=== PATIENT | female | born 1945 | race Caucasian/White ===

== ENCOUNTER 2019-01-10 05:53 | Inpatient (IN) ==
--- NOTE | 2018-12-20 11:06 | PAT Medication Instructions ---
Medication Instructions Date of Service December 20, 2018 Home Medications apixaban [Eliquis] 5 mg PO BID aspirin 81 mg PO QAM cholecalciferol (vitamin D3) [Vitamin D3] 1,000 unit PO QAM diltiazem HCl 240 mg PO QAM escitalopram oxalate [Lexapro] 20 mg PO QAM furosemide [Lasix] 20 mg PO BID hydroxychloroquine [Plaquenil] 200 mg PO BID lisinopril 20 mg PO QAM magnesium 200 mg PO QAM multivitamin 1 cap PO QAM ranitidine HCl [Zantac] 150 mg PO DAILY NEEDED simvastatin 40 mg PO PM ASK your surgeon for instructions aspirin 81 mg PO QAM - stop 5 days prior to surgery ASK your prescriber and surgeon apixaban [Eliquis] 5 mg PO BID - ask at cardiology appointment hydroxychloroquine [Plaquenil] 200 mg PO BID - ask bandoleer straightener stamper DO NOT take the morning of surgery cholecalciferol (vitamin D3) [Vitamin D3] 1,000 unit PO QAM furosemide [Lasix] 20 mg PO BID lisinopril 20 mg PO QAM magnesium 200 mg PO QAM multivitamin 1 cap PO QAM Take morning of surgery With a small sip of water, OTHERWISE NOTHING TO EAT OR DRINK AFTER MIDNIGHT: diltiazem HCl 240 mg PO QAM escitalopram oxalate [Lexapro] 20 mg PO QAM ranitidine HCl [Zantac] 150 mg PO DAILY NEEDED Take evening before surgery furosemide [Lasix] 20 mg PO BID simvastatin 40 mg PO PM Other Notes If you have any questions please call us at [phone] or [phone] or [phone] or [phone]
--- NOTE | 2018-12-20 11:20 | Anesthesiology Consultation ---
Date of Service December 20, 2018 Assessment & Plan (1) Encounter for pre-operative examination: Chart Review Chart Review: Acceptable Risk for Surgery and Patient seen in Pre Admission Testing Consults Requested cardiac (ALEXIS Fang (12/24)) Patient was seen by cardiology on 12/24 for new onset a.fib/a. flutter, as well as for a pre-operative clearance. Per note from that visit, patient is to have an Echocardiogram, Holter Monitor, and Follow up after her surgery. They do not feel testing needs to be done prior to surgery. Per note from this visit, "Agree with plan to proceed with surgery with no further testing." Also, "Can interrupt anticoagulation in the perioperative period." Teaching & Discussion Pre-Anesthesia Teaching/Discussion Notes: Instructed NPO after midnight before surgery, except medications with 15 cc of water. Medication instructions provided according to the PAT guidelines. History Surgery Operation Date: 01/10/19 08:50 Proposed Procedures p Right Total Knee Arthroplasty - Pedro Doan MD Height/Weight Height: 5 ft 7 in Weight: 117.4 kg Allergies Allergy/AdvReac Type Severity Reaction Status Date / Time Sulfa (Sulfonamide Allergy Intermediate "SULFA Verified 12/19/18 13:49 Antibiotics) DRUGS = RASH, HIVES, SWELLING" adhesive Allergy Unknown RED Verified 12/19/18 13:49 BLISTERS Iodinated Contrast- Oral and Allergy Unknown MENTAL Verified 12/19/18 13:49 IV Dye STATUS CHANGE - ? DELLUSIONS nickel Allergy Unknown RASH Verified 12/19/18 13:49 Penicillins Allergy Unknown RASH Verified 12/19/18 13:49 Medications Home Medications Medication Instructions Recorded Confirmed Last Taken apixaban [Eliquis] 5 mg PO BID 12/19/18 12/19/18 Unknown aspirin 81 mg PO QAM 12/19/18 12/19/18 Unknown cholecalciferol (vitamin D3) 1,000 unit PO QAM 12/19/18 12/19/18 Unknown [Vitamin D3] diltiazem HCl 240 mg PO QAM 12/19/18 12/19/18 Unknown escitalopram oxalate [Lexapro] 20 mg PO QAM 12/19/18 12/19/18 Unknown furosemide [Lasix] 20 mg PO BID 12/19/18 12/19/18 Unknown hydroxychloroquine [Plaquenil] 200 mg PO BID 12/19/18 12/19/18 Unknown lisinopril 20 mg PO QAM 12/19/18 12/19/18 Unknown magnesium 200 mg PO QAM 12/19/18 12/19/18 Unknown multivitamin 1 cap PO QAM 12/19/18 12/19/18 Unknown ranitidine HCl [Zantac] 150 mg PO DAILY PRN 12/19/18 12/19/18 Unknown simvastatin 40 mg PO PM 12/19/18 12/19/18 Unknown Past Medical History Medical History Cardiac arrest (Resolved) 09/23/2013 - [facility] [facility] [place] - MEDICAL TREATMENT -- FX RIBS AND PUNCTURE SPLEEN AND DID NOT NEED SURGERY -- [facility] FOLLOWS WITH MCKAYLA DELGADO AND DR GARVEY AND SWITCHING TO IN [place] AAA (abdominal aortic aneurysm) (Chronic) HTN (hypertension) (Chronic) HLD (hyperlipidemia) (Chronic) COPD (chronic obstructive pulmonary disease) (Chronic) GERD (gastroesophageal reflux disease) (Chronic) Rheumatoid arthritis (Chronic) Thoracic aortic aneurysm (Resolved) Atrial flutter 12/17/18 - WAS IN TO SEE MIKE GURROLA FOR PREOP AND HAD EKG WHICH SHOWED ATRIAL FLUTTER. HE STARTED HER ON ELIQUIS 5MG BID AND IS TO SEE [facility] TECHNICIAN IN [place] FOR EVALUATION ON 12/24. Diabetes mellitus, type 2 NO MEDS AT PRESENT Vertigo Exercise / Class Metabolic Activity III < 4 Walking/Shop/Light housework (Limited due to knee pain. Able to climb FOS. Does get SOB with activity (sees cardiology for new dx of a. flutter 12/24). Denies CP. ) Past Surgical History Surgical History S/P BRYSON-BSO (Chronic) H/O knee surgery (Chronic) RIGHT Hx of total knee arthroplasty (Chronic) LEFT S/P cholecystectomy (Chronic) S/P (Chronic) H/O cataract removal with insertion of prosthetic lens History of carpal tunnel release of both wrists Hx of colonoscopy Hx of thoracic aortic aneurysm repair 2014 - DR HUGHES 08/03/15: MAC #3, ETT #7.0, HiLo Oral, Grade 1 View Past Anesthesia History No Hx of Anesthesia Complications and No Family Hx of Anesthesia Complications History of PONV No Hx of PONV and No Hx of Motion Sickness Social History Smoking Status: Former smoker Smoking cigarettes per day: Smoked 1.5ppd x 51 years Do You Dip or Chew Tobacco: No Smoking End Date: QUIT 2013 Hx Alcohol Use: No Hx Substance Use: No substance use type: does not use Review of Systems Patient denies chest pain, shortness of breath, cough, wheezing, palpitations. +Joint Pain (Knee) +DURAN (New diagnosis a. fib/flutter) +Acid reflux (Rare, resolves quickly with Zantac) Physical Exam Vital Signs BP: 116/74 P: 82 R: 16 T: 99.0 SPO2: 96% on RA Constitutional + morbidly obese ENMT Mouth: + dentures (upper and lower) and + edentulous Thyromental Distance: < 3.5 Finger Breadths (3) Mallampati Class: II Neck normal visual inspection, trachea midline and + thick neck; neck extension not limited Respiratory normal respiratory effort Auscultation: lungs clear to auscultation bilaterally Cardiovascular Rate/Rhythm: + abnormal rate and + abnormal rhythm Heart Sounds: no murmur Vessels: no carotid bruit Irregularly Irregular rate and rhythm Neurologic moves all extremities Psychiatric Orientation: alert and oriented x 3 Testing Laboratory Results 12/20/18 11:32 12/20/18 11:32 PT 10.8 Seconds (9.0-12.0) 12/20/18 11:35 INR 1.1 (0.9-1.1) 12/20/18 11:35 APTT 28.3 Seconds (21.0-31.0) 12/20/18 11:35 Hemoglobin A1c 6.6 % (4.5-5.6) H 12/20/18 11:32 Blood Type A Positive 12/20/18 11:32 Antibody Screen NEGATIVE 12/20/18 11:32 BUN/Cr are consistent with baseline per records from [facility]. Electrocardiogram Date: 12/17/18 Cervical Spine Date: 12/20/18 FINDINGS: 3 lateral views of the cervical spine in neutral, flexion, and extension were submitted. The cervical spine is visualized from C1 through T1. No fractures within the cervical spine. Moderate facet degenerative changes throughout the cervical spine. Prevertebral soft tissues and the C1-C2 interval are intact. Questionable thickening of the prevertebral soft tissues is likely positional. Disc spaces are relatively preserved. Alignment remains intact throughout flexion and extension. IMPRESSION: No fracture or subluxation within the cervical spine. Alignment remains intact throughout flexion and extension. Other Testing Chest CT 04/22/18 FINDINGS: No change in the stent repair of the descending thoracic aortic aneurysm. Overall dimensions as well as stent positions are unchanged. There are no new or interval findings. Lungs are considered clear. Scattered foci of chronic atelectatic and/or fibrotic change are stable. No significant mediastinal or hilar adenopathy at the current time. No focal infiltrates. IMPRESSION: 1. Endograft stent repair of the descending thoracic aorta unchanged from the prior study. 2. Stable emphysematous change. 3. No focal infiltrative process. 4. Descending thoracic aortic stent is unchanged in location
--- NOTE | 2018-12-20 12:06 | XRay Report ---
XR cervical spine 2 or 3V CLINICAL HISTORY: Preop. Rheumatoid arthritis. COMPARISON STUDY: None. FINDINGS: 3 lateral views of the cervical spine in neutral, flexion, and extension were submitted. Th e cervical spine is visualized from C1 through T1. No fractures within the cervical spine. Moderate f acet degenerative changes throughout the cervical spine. Prevertebral soft tissues and the C1-C2 inte rval are intact. Questionable thickening of the prevertebral soft tissues is likely positional. Disc spaces are relatively preserved. Alignment remains intact throughout flexion and extension. IMPRESSION: No fracture or subluxation within the cervical spine. Alignment remains intact throughou t flexion and extension. Electronically signed by: Malachi Sutton M.D. 12/20/2018 12:05 PM
[2018-12-20 14:01] LABS: Basophils # (auto) 0.05 K/uL (0-0.2); Basophils % (auto) 0.5 %; Eosinophils # (auto) 0.22 K/uL (0-0.5); Eosinophils % (auto) 2.2 %; Hematocrit (blood only) 37.2 % (37-47); Hemoglobin 11.7 g/dL (12.0-16.0); Immature Granulocytes # (auto) 0.03 K/uL (0.00-0.02); Immature Granulocytes % (auto) 0.3 %; Lymphocytes # (auto) 1.54 K/uL (1.2-3.4); Lymphocytes % (auto) 15.3 %; Mean Corpuscular Hemoglobin 29.7 pg (25-34); Mean Corpuscular Hgb Conc 31.5 g/dL (32-36); Mean Corpuscular Volume 94.4 fL (80-100); Mean Platelet Volume 9.9 fL (7.4-10.4); Monocytes # (auto) 0.61 K/uL (0.11-0.59); Monocytes % (auto) 6.1 %; Neutrophils # (auto) 7.62 K/uL (1.4-6.5); Neutrophils % (auto) 75.6 %; Platelet Count 258 K/uL (130-400); RDW Coefficient of Variation 12.7 % (11.5-14.5); RDW Standard Deviation 43.8 fL (36.4-46.3); Red Blood Count 3.94 M/uL (4.2-5.4); White Blood Count 10.07 K/uL (4.8-10.8)
[2018-12-20 14:14] LABS: BUN Creatinine Ratio 23.1 (10-20); C Reactive Protein 0.91 mg/dl (0-0.29); Calcium 9.1 mg/dl (8.5-10.1); Creatinine Clr Calc Pharmacy 45.2 ml/min; Est GFR (African American) 40.2; Est GFR (Non-African American) 34.7; Potassium 4.9 mmol/L (3.5-5.1)
[2018-12-20 14:23] LABS: Estimated Average Glucose 143 mg/dl; Hemoglobin A1C 6.6 % (4.5-5.6)
[2018-12-20 14:25] LABS: INR 1.1 (0.9-1.1); Partial Thromboplastin Time 28.3 Seconds (21.0-31.0); Prothrombin Time 10.8 Seconds (9.0-12.0)
--- NOTE | 2019-01-04 01:15 | History and Physical Report ---
DATE OF ADMISSION: 01/03/2019 CHIEF COMPLAINT: Persistent right knee pain and discomfort. HISTORY OF PRESENT ILLNESS: This patient is a 73-year-old female who presents for surgical treatment of her right knee. She had a long history of knee problems and underwent a left knee replacement 5 years ago. She has done pretty well with this, but still has some muscle aches and pains, but in general pretty happy. She continues to be bothered by progressive increasing pain and discomfort in her right knee. She describes global pain. She has a limited walking tolerance. We treated with injections over the years, which have become less successful. The more she walks, the more it hurts. Walking tolerance is a couple of blocks. She has difficulty going up and down stairs. She has nighttime discomfort. She would like to have her right knee fixed. PAST MEDICAL HISTORY: 1. Coronary artery disease, status post myocardial infarction in 2013 without current symptoms. 2. Hypertension. 3. Elevated cholesterol. 4. Chronic obstructive pulmonary disease. 5. Diabetes with an A1c of 6.6. 6. Obesity with BMI of 41. 7. Gastroesophageal reflux disease. PAST SURGICAL HISTORY: 1. Left knee replacement done on 03/10/2014. 2. Cataract surgery. 3. Hysterectomy. 4. Carpal tunnel release. 5. Cholecystectomy. ALLERGIES: PENICILLIN WHICH CAUSES A RASH. ALSO DESCRIBES ALLERGY TO NICKEL AND SULFA. CURRENT MEDICINES: Include, 1. Combivent inhaler. 2. Albuterol inhaler. 3. Plaquenil twice a day for rheumatoid arthritis. 4. Lisinopril once a day. 5. Diltiazem. 6. Zantac. 7. Unspecified pill. 8. Baby aspirin. 9. Unspecified med. SOCIAL HISTORY: This patient is a 73-year-old female. She is from [place]. Does not smoke. No significant alcohol intake. FAMILY HISTORY: Noncontributory. REVIEW OF SYSTEMS: Significant for diabetes. Hemoglobin A1c is 6.6. She does have a history of cardiac disease, but no current symptoms. She is followed by Dr. Huynh. She also reports some nickel allergy. We used a Caldwell and Nephew knee with her last time as a result. PHYSICAL EXAMINATION: GENERAL: Reveals a pleasant, middle-aged female, looks to be in reasonably good health. HEENT: Benign. NECK: Supple. No lymphadenopathy. LUNGS: Clear to auscultation. HEART: Regular rate and rhythm. ABDOMEN: Soft, nontender and nondistended. EXTREMITIES: Grossly neurovascularly intact except as follows. Examination of both knees reveals the patient walks with a bit of a waddling gait. Examination of the right knee reveals varus alignment. She has got bony hypertrophy medially. She is tender over the medial joint line. Small knee effusion. Range of motion is 5-120. No instability. Examination of the left knee reveals a well-healed incision. She has got some mild diffuse tenderness to palpation. She is tender around the pes tendons. There is no detectable knee effusion. Range of motion 0-120. Good straight leg raise. X-RAYS: X-rays of the right knee reviewed. She has advanced right knee DJD. She has complete loss of medial joint space. She has got tricompartment disease with osteophytes in all 3 compartments. Fairly large posterior osteophytes. The left knee replacement looks to be in good position. No signs of problems. ASSESSMENT: This patient is a 73-year-old white female diabetic with underlying rheumatoid disease 5 years out from left knee replacement with advanced right knee degenerative joint disease. She elected to proceed with right knee replacement. PLAN: We will take her to the operating room and do a right total knee replacement. Due to her nickel allergy, we will use a Caldwell and Nephew total knee replacement. Her sed rate and C-reactive protein are slightly elevated, likely related to her rheumatoid disease. The risks and benefits of right total knee replacement were explained to the patient including but not limited to deep venous thrombosis, pulmonary embolism, , infection, neurological injury, vascular injury, bleeding problem, pain, limited range of motion, stiffness, failure to relieve symptoms, incomplete relief of symptoms, need for further surgery in future, fracture, leg length inequality, nerve palsy, etc. The patient understands and desires to proceed. Informed consent was obtained. We did talk about holding her lisinopril the morning of surgery. She is planning to be discharged home using [facility]. DONOVAN
[2019-01-10] MEDS ORDERED: GABAPENTIN 300 MG CAP PO SCH (06:00)
[2019-01-10] MEDS ORDERED: LR 500ML BOLUS, THEN 15ML/HR IV SCH (06:00)
[2019-01-10] MEDS ORDERED: BUPIVACAINE LIPOSOME/PF 266 MG, BUPIVACAINE/EPINEPHRINE 50 ML, SODIUM CHLORIDE 0.9% 30 ... INFIL SCH (06:00)
[2019-01-10] MEDS ORDERED: FAMOTIDINE 20 MG TAB PO SCH (06:00)
[2019-01-10] MEDS ORDERED: LR 60ML/HR IV SCH (06:00)
[2019-01-10] MEDS ORDERED: TRANEXAMIC ACID 1,000 MG **IV Pre-op IV SCH (06:00)
[2019-01-10] MEDS ORDERED: ACETAMINOPHEN 500 MG TAB PO SCH (06:00)
[2019-01-10] MEDS ORDERED: CEFAZOLIN 2000MG 2,000 MG/15 ML SYR IV SCH (06:00)
[2019-01-10] MEDS ORDERED: TRANEXAMIC ACID 1,000 MG **IV Intra-op IV SCH (06:30)
--- NOTE | 2019-01-10 06:53 | History & Physical Bridge Note ---
Date of Service January 10, 2019 History & Physical Bridge Note I have examined the patient, reviewed the History & Physical and in the interval since the performance of the History & Physical I have noted the following changes of clinical significance: no changes noted
[2019-01-10] MEDS ORDERED: ROPIVACAINE 0.5% 5 MG/ML 30 ML VIAL ONE (07:12)
[2019-01-10] MEDS ORDERED: BUPIVACAINE 0.5 % 5 MG/1 ML PF 10ML VIAL ONE (07:13)
[2019-01-10] MEDS ORDERED: EPINEPHrine INJ 1 MG/ML AMP ONE ×2 (07:13→08:53)
[2019-01-10] MEDS ORDERED: MIDAZOLAM HCL 1 MG/ML 2ML VIAL ONE (07:27)
[2019-01-10] MEDS ORDERED: fentaNYL citrate 100 MCG/2 ML VIAL ONE (07:27)
[2019-01-10] MEDS ORDERED: SODIUM CHLORIDE 0.9% PF 50 ML VIAL ONE (08:52)
[2019-01-10] MEDS ORDERED: BACITRACIN INJ 50,000 UNIT VIAL ONE (08:52)
[2019-01-10] MEDS ORDERED: BUPIVACAINE LIPOSOME 1.3% 266 MG/20 ML VIAL ONE (08:52)
[2019-01-10] MEDS ORDERED: BUPIVACAINE 0.25% 30 ML VIAL ONE (08:52)
[2019-01-10] MEDS ORDERED: PHENYLEPHRINE 100MCG/ML 5ML SYR ONE (09:25)
[2019-01-10] MEDS ORDERED: ePHEDrine sulfate 50 MG/ML SYR ONE (09:30)
--- NOTE | 2019-01-10 10:57 | Post Operative Brief Note ---
PG Immediate Post Op with CF Date of Surgery January 10, 2019 Pre & Post Diagnosis Operation Date: 01/10/19 08:40 Pre-Op Diagnosis: Right Knee Degenerative Joint Disease Post-Op Diagnosis: Right Knee Degenerative Joint Disease Procedure Operation Date: 01/10/19 08:40 Actual Procedures p Right Total Knee Arthroplasty(Right) - Pedro Doan MD Surgeon Pedro Doan MD Tool Shaper Setup Operator Liliya, PAC Estimated Blood Loss 50 Findings Consistent with Post-Op Diagnosis Fluids 1000 cc Specimens Specimen Description: Permanent Solution: A.) Right Knee Bone and Tissue Drains Bowden Catheter (16 amharic 10ml balloon) Anesthesia Type Spinal MAC Complications none Disposition Accompanied Patient To Recovery: No Disposition: Recovery Room
[2019-01-10] MEDS ORDERED: ATROPINE SULFATE 0.1 MG/ML 10ML SYR IV PRN (11:27)
[2019-01-10] MEDS ORDERED: ePHEDrine sulfate 50 MG/ML AMP IV PRN (11:27)
--- NOTE | 2019-01-10 11:33 | XRay Report ---
RIGHT KNEE 2 VIEWS History: Right total knee arthroplasty. Degenerative arthritis. Postop. FINDINGS: The patient is status post a right total knee arthroplasty. The hardware is intact. No frac ture or dislocation. Skin stone are in place. IMPRESSION: Right total knee arthroplasty. No evidence for hardware complication. Electronically signed by: Malachi Sutton M.D. 01/10/2019 11:32 AM
--- NOTE | 2019-01-10 11:50 | Anesthesiology Progress Note ---
Date of Service January 10, 2019 Anesthesia Post Procedure Vital Signs Vital Signs: Temp Pulse Pulse Resp BP Pulse Ox 01/10/19 11:40 65 14 107/56 L 96 01/10/19 11:30 58 L 15 114/50 L 97 01/10/19 11:20 36.5 C 64 14 116/55 L 92 01/10/19 11:10 61 15 106/55 L 100 01/10/19 11:04 36.1 C L 77 15 117/70 99 01/10/19 06:30 36.9 C 92 H 20 145/90 H 94 Transfer of Care Handoff Completed per policy Notes Mental Status: alert / awake / arousable Patient Amnestic to Procedure: Yes Nausea / Vomiting: adequately controlled Pain: adequately controlled Airway Patency, RR, SpO2: stable & adequate BP & HR: stable & adequate Hydration State: stable & adequate Neuraxial Anesthesia: was administered and sensory block is resolving Anesthetic Complications: no major complications apparent
[2019-01-10] MEDS ORDERED: GLUCOSE 40% GEL 15 GM TUBE PO PRN (12:42)
[2019-01-10] MEDS ORDERED: NO NSAIDS SCH (12:42)
[2019-01-10] MEDS ORDERED: MAGNESIUM HYDROXIDE SUSP 30 ML UDC PO PRN (12:42)
[2019-01-10] MEDS ORDERED: NALOXONE HCL 0.4 MG/1 ML VIAL/CARP IV PRN (12:42)
[2019-01-10] MEDS ORDERED: ALUMINUM/MAGNESIUM SUSP 30 ML UDC PO PRN (12:42)
[2019-01-10] MEDS ORDERED: GLUCOSE 10 TABS/TUBE PO PRN (12:42)
[2019-01-10] MEDS ORDERED: METOCLOPRAMIDE HCL INJ 5 MG/ML 2 ML VIAL IV PRN (12:42)
[2019-01-10] MEDS ORDERED: PHARMACY GLYCEMIC MGMT CONSULT STA (12:42)
[2019-01-10] MEDS ORDERED: GLUCAGON FOR INJ 1 MG VIAL SQ PRN (12:42)
[2019-01-10] MEDS ORDERED: ONDANSETRON INJ 2 MG/ML 2 ML VIAL IV PRN (12:42)
[2019-01-10] MEDS ORDERED: CARBOHYDRATES FOR HYPOGLYCEMIA PO PRN (12:42)
[2019-01-10] MEDS ORDERED: BISACODYL 10 MG SUPP PR PRN (12:42)
[2019-01-10] MEDS ORDERED: DEXTROSE 50% 50 ML SYRINGE IV PRN (12:42)
[2019-01-10] MEDS ORDERED: PHARMACY GLYCEMIC MGMT CONSULT SCH (13:00)
[2019-01-10] MEDS: OXYCODONE HCL IR 5 MG TAB (IMMEDIATE RELEASE) PO PRN ×2 (13:06→18:45)
[2019-01-10] MEDS: INSULIN ASPART 100 UNITS/ML 3 ML PEN SC SCH ×3 (13:48→22:18)
[2019-01-10] MEDS: IPRATROPIUM BROMIDE/ALBUTEROL respimat INH INH SCH ×3 (13:50→21:27)
[2019-01-10] MEDS: ACETAMINOPHEN 500 MG TAB PO SCH ×2 (13:51→21:30)
[2019-01-10] MEDS: SODIUM CHLORIDE 0.9% 1000ML 1,000 ML IV SCH ×2 (13:51→18:50)
--- NOTE | 2019-01-10 14:09 | Pharmacy Report ---
Glycemic Control Consultation - Date of Service January 10, 2019 - Scope Scope: Glycemic Pharmacist consulted by Dr Pedro Doan on 01/10/19 for glycemic control and to write orders per [facility] inpatient glycemic control protocol - Objective Weight: 115.865 kg Accuchecks BSG (last 24hrs): 01/10/19 01/10/19 01/10/19 06:13 11:12 12:18 POC Glucose 119 H 121 H 109 H HbA1c: Hemoglobin A1c 6.6 % (4.5-5.6) H 12/20/18 11:32 - Recent Pertinent Medications Outpatient Anti-diabetic Regimen: * no medications * A1c = 6.6 % 12/20/18 Risk Factors for Insulin Resistance: * Recent Surgery: s/p TKA * Diet: Type 2 DM - Assessment & Plan Assessment & Plan: ASSESSMENT: * 73 year old female, s/p TKA, type 2 diabetic controlled by diet/lifestyle at home, A1c 6.6%. * Blood sugars at goal now while fasting, will just use bolus insulin at this time, likely won't need basal insulin, no steroids received. * ADA & AACE recommend a goal blood sugar range 140-180 mg/dl for the majority of critically ill & non-critically ill patients. However, more stringent targets may be selected in individual cases. Will utilize more stringent goal of 110-140mg/dl based on patient age & comorbidities. Additionally, tighter glycemic control is warranted to facilitate wound/infection healing. PLAN FOR INPATIENT GLYCEMIC CONTROL: * Bolus insulin * NovoLog per scale ACHS or Q6hrs while NPO * Goal Range: Low 110 mg/dL - High 140 mg/dL * Correction Factor: 30 mg/dL/unit * Nutritional / Prandial insulin per carb ratio of 1 unit per 10 grams CHO consumed * Please note that the plan above was derived based on current level of insulin resistance and hospital stress. These recommendations are appropriate for inpatient admission only. Plan of care upon discharge will need to be reassessed to avoid potential outpatient hypo/hyperglycemia. Thank you.
--- NOTE | 2019-01-10 16:05 | Progress Note ---
DATE: 01/10/2019 SUBJECTIVE: A 73-year-old white female postop from a right knee replacement. She is doing okay. Had some pain earlier, got some pain medicine, doing much better now. She is comfortable. No chest pain or shortness of breath. Not feeling dizzy or lightheaded. OBJECTIVE: VITAL SIGNS: Temperature 36.4. Vital signs stable. GENERAL: Physical exam shows a pleasant elderly female. She is lying in bed and talking to her , watching TV, looks reasonably comfortable. LUNGS: Clear to auscultation. HEART: Has irregularly irregular rhythm. ABDOMEN: Soft, nontender, nondistended. EXTREMITIES: Grossly neurovascularly intact except as follows. Examination of the right lower extremity reveals the leg to be well aligned. Dressing is clean, dry and intact. She can dorsiflex and plantarflex her foot appropriately. She is neurologically intact. X-RAYS: X-ray of the right knee from recovery room reviewed. It shows right cemented posterior stabilized total knee arthroplasty. Components looked to be in good position. No signs of problems. ASSESSMENT: A 73-year-old white female postop from a right knee replacement, doing well. Her pain is controlled. She is neurologically intact. PLAN: 1. DVT prophylaxis including thigh-high TEDs, SCDs. We will start her back on Eliquis tomorrow. We will start at a prophylactic dose initially and then increase to therapeutic dose probably in 2-3 days. 2. PT/OT. Weight bear as tolerated. Right total knee protocol. 3. Pain control, doing well with current pain regimen. 4. IV antibiotics x24 hours. 5. Disposition: Plan to discharge to home with some home health once adequately recovered.
[2019-01-10] MEDS: FERROUS GLUCONATE 324 MG TAB PO SCH (17:23)
[2019-01-10] MEDS: FUROSEMIDE 20 MG TAB PO SCH (17:23)
[2019-01-10] MEDS: CEFAZOLIN 2000MG 2,000 MG/15 ML SYR IV SCH (17:23)
[2019-01-10] MEDS: ASCORBIC ACID 500 MG TAB PO SCH (17:23)
--- NOTE | 2019-01-10 20:45 | Operative Report ---
DATE OF OPERATION: 01/10/2019 SURGEON: Pedro Doan MD. ADJUSTER ELECTRICAL CONTACTS: IZABELA Carrion. PREOPERATIVE DIAGNOSIS: Right knee degenerative joint disease. POSTOPERATIVE DIAGNOSIS: Right knee degenerative joint disease. PROCEDURE PERFORMED: Right cemented posterior stabilized total knee arthroplasty. COMPLICATIONS: None. ESTIMATED BLOOD LOSS: 50 mL. FLUID REPLACEMENT: 1000 mL of crystalloid fluid replacement. ANESTHESIA: Spinal with adductor canal block. DRAINS: None. SPECIMENS: Right knee sent for pathology. OPERATIVE INDICATIONS: The patient is a 73-year-old female who has had a long history of knee problems. She has been through extensive conservative treatment over the years. She had her left knee replaced about 4-1/2 years ago. She became more debilitated by her right knee pain. She elected to proceed with right total knee arthroplasty. OPERATIVE FINDINGS: Operative findings revealed advanced right knee DJD. She had grade 4 [id number] disease in all 3 compartments, most severe on the medial side. She had a varus deformity to her knee, a 10 degree flexion contracture, and osteophytes, particularly on the medial side of the knee and the posterior medial side of the knee. The patient apparently has a NICKEL ALLERGY, so we used the Caldwell and Nephew zirconium knee arthroplasty. OPERATIVE IMPLANTS: 1. Operative implants consistent with Caldwell [employer] Nephew Journey zirconium size 4 posterior stabilized femoral component. 2. Caldwell and Nephew size 3 tibial tray. 3. A 10 mm posterior stabilized polyethylene insert. 4. A ____ x 9 all-poly patella. OPERATIVE PROCEDURE: The patient was taken to the operating room, identified and placed on the operating table in supine position. All contact areas were appropriately padded. IV antibiotics provided by anesthesia team. Spinal anesthetic and adductor canal block had been provided in the holding area. Bowden catheter was placed in sterile fashion. Right thigh tourniquet was then placed and the right lower extremity was then prepped and draped in usual sterile fashion. The right leg was elevated and exsanguinated with an Esmarch and tourniquet was placed at 300 mmHg. An anterior approach to the right knee was then performed through a longitudinal incision centered over the patella. Sharp dissection was carried through the subcutaneous tissues down to the level of the extensor mechanism. A medial parapatellar arthrotomy incision was made. Some subperiosteal dissection was carried out medially. The fat pad was resected from beneath the patellar tendon. The lateral patellofemoral ligament was released. The patella was everted and knee was flexed. The osteophytes were taken off the distal femur. The ACL and PCL were then released from distal femur. The tibia subluxated anteriorly. The external tibial alignment jig was then placed in the anterior face of the tibia and adjusted 8 mm medially. Proximal tibial cut was made to remove about 2 mm of bone from the most deficient aspect of the medial tibial plateau. Some osteophytes were taken off medial and posteromedially. Tibia was sized to a size 3. Attention was then drawn to the femur. The distal femur was entered with a sharp drill. Intramedullary canal was suctioned. A right 5-degree valgus cutting guide was placed. Distal femoral cutting block was pinned in place. Distal femoral cut was made to take an additional 2 mm of bone off distal femur. The femur was then sized to a size 4. We did downsize this slightly. The AP cutting block was then pinned in place and adjusted to 6 degrees of external rotation. The anterior cord, anterior chamfer, posterior cut, posterior chamfer, and then anterior cut were made. The cutting block was removed. The bone fragments were removed. The knee was flexed. The remnants of the medial and lateral menisci were excised. The osteophytes were taken off the posterior aspect of the femur. The trial femoral component was then placed. The distal femur was prepared for the box and then the trochlea was placed. The tibial tray was then pinned in maximum external rotation and the drill and stem punch were used to create defect in proximal tibia for the tibial tray. We then trialed the knee and the 10 mm insert fit most appropriately. Attention was then drawn to the patella. The patella was cleaned of all soft tissues. Patella thickness measured about 22 mm in thickness, it was cut down to 14. It was sized to a size 35 patella. Lug holes were drilled for 35 patella. Lateral osteophytes were removed. Patella button was placed. Knee was taken through range of motion, patella tracked nicely with no thumbs test. Attention was then drawn toward placement of permanent components. All trial components were removed. A bone plug was placed in the distal femur to limit blood loss. A double batch of Palacos G cement was mixed. A Caldwell and Nephew size 4 posterior stabilized femoral component, size 3 tibial tray, 10 mm posterior stabilized polyethylene insert, and a 35 x 9 all-poly patella then cemented in place. Knee was brought into full extension until cement hardened. Final cement check was then performed. Pericapsular tissues were injected with a total of 100 mL of combination of 20 mL of Exparel, 30 mL of normal saline, 50 mL of 0.25% Marcaine with epinephrine. The tourniquet was then let down for a tourniquet time of 57 minutes. Hemostasis was assured with the use of electrocautery. The wound was once again irrigated. The extensor mechanism was then closed with a combination of #1 PDS suture and #1 Vicryl suture in [id number] fashion. Extensor mechanism was checked and found to be intact. The subcutaneous tissue was then closed with #2 Dexon suture in a buried interrupted fashion. Skin was closed with skin stone. Leg was then cleaned, dried and a sterile dressing of Xeroform, 4 x 4, sterile cast padding and Jayson bandage were applied. The patient was then transferred to the recovery room in stable condition. The patient tolerated the procedure well with no complications. All needle and sponge counts were correct at the end of the operation. I attest to the content of the Intraoperative Record and any orders documented therein. Any exception s are noted below.
[2019-01-10] MEDS: TAPENTADOL HCL ER 50 MG TABCR PO SCH (21:27)
[2019-01-10] MEDS: BUDESONIDE/FORMOTEROL FUMARATE 160/4.5 60 PUFFS/INHALER INH SCH (21:27)
[2019-01-10] MEDS: SIMVASTATIN 40 MG TAB PO SCH (21:30)
[2019-01-10] MEDS: DOCUSATE SODIUM 100 MG CAP PO SCH (21:30)
[2019-01-10] MEDS: HYDROXYCHLOROQUINE SULFATE 200 MG TAB PO SCH (21:30)
[2019-01-10] MEDS: SENNA 8.6 MG TAB PO SCH (21:30)
[2019-01-10] MEDS: HYDROmorphone INJ 0.5 MG/0.5 ML SYR IV PRN (22:23)
[2019-01-11] MEDS: CEFAZOLIN 2000MG 2,000 MG/15 ML SYR IV SCH (00:24)
[2019-01-11] MEDS: OXYCODONE HCL IR 5 MG TAB (IMMEDIATE RELEASE) PO PRN ×2 (05:40→19:36)
[2019-01-11] MEDS: ACETAMINOPHEN 500 MG TAB PO SCH ×3 (05:40→21:18)
[2019-01-11 06:22] LABS: Hematocrit (blood only) 30.2 % (37-47); Hemoglobin 9.4 g/dL (12.0-16.0); Mean Corpuscular Hemoglobin 29.4 pg (25-34); Mean Corpuscular Hgb Conc 31.1 g/dL (32-36); Mean Corpuscular Volume 94.4 fL (80-100); Mean Platelet Volume 9.7 fL (7.4-10.4); Platelet Count 222 K/uL (130-400); RDW Coefficient of Variation 12.8 % (11.5-14.5); White Blood Count 11.15 K/uL (4.8-10.8)
[2019-01-11 07:04] LABS: BUN Creatinine Ratio 20.8 (10-20); Calcium 8.1 mg/dl (8.5-10.1); Creatinine Clr Calc Pharmacy 42.3 ml/min; Est GFR (African American) 37.5; Est GFR (Non-African American) 32.3; Potassium 4.8 mmol/L (3.5-5.1)
[2019-01-11] MEDS: HYDROmorphone INJ 0.5 MG/0.5 ML SYR IV PRN (07:13)
--- NOTE | 2019-01-11 08:35 | Progress Note ---
DATE: 01/11/2019 SUBJECTIVE: A 73-year-old white female postop day 1 from right knee replaced. She is doing okay. Pretty painful night and still hurting quite a bit this morning. No chest pain or shortness of breath. Denies any dizziness or lightheaded. OBJECTIVE: VITAL SIGNS: Temperature 36.6. Vital signs stable. GENERAL: Physical examination shows a pleasant elderly female. She is lying in bed, doing heel prop. She looks reasonably comfortable. EXTREMITIES: Examination of the right leg reveals the leg to be well aligned. Dressing has been reinforced. She can dorsiflex and plantarflex her foot appropriately. She cannot quite do a straight leg raise. LABORATORY DATA: Hemoglobin is 9.4. Hematocrit 30.2. Electrolytes are stable. She has got a chronic underlying renal disease. ASSESSMENT: A 73-year-old female with multiple medical comorbidities including diabetes, atrial fibrillation, and chronic renal insufficiency, postop day 1 from right knee replacement. She is doing okay. Unfortunately, her pain med limitations restrict NSAID use due to her anticoagulation as well as her renal function. PLAN: 1. DVT prophylaxis including thigh-high TEDs, SCDs, and we will start her back on a prophylactic Eliquis dose today. 2. PT/OT. Weight bear as tolerated. Right total knee protocol. 3. Pain control, doing okay with current pain regimen. We cannot use NSAIDs and we will have to stick to narcotics. 4. Disposition: She is hoping to be discharged to home with some home health once medically stable and recovered.
[2019-01-11] MEDS: ESCITALOPRAM OXALATE 20 MG TAB PO SCH (08:50)
[2019-01-11] MEDS: FERROUS GLUCONATE 324 MG TAB PO SCH ×2 (08:50→16:36)
[2019-01-11] MEDS: CHOLECALCIFEROL 1,000 UNITS TAB PO SCH (08:51)
[2019-01-11] MEDS: LISINOPRIL 20 MG TAB PO SCH (08:51)
[2019-01-11] MEDS: DOCUSATE SODIUM 100 MG CAP PO SCH ×2 (08:51→21:14)
[2019-01-11] MEDS: ASPIRIN 81 MG ECTAB PO SCH (08:51)
[2019-01-11] MEDS: HYDROXYCHLOROQUINE SULFATE 200 MG TAB PO SCH ×2 (08:51→21:14)
[2019-01-11] MEDS: IPRATROPIUM BROMIDE/ALBUTEROL respimat INH INH SCH ×4 (08:51→21:13)
[2019-01-11] MEDS: FUROSEMIDE 20 MG TAB PO SCH ×2 (08:51→16:36)
[2019-01-11] MEDS: dilTIAZem HCL 240 MG CAPCR PO SCH (08:51)
[2019-01-11] MEDS: ASCORBIC ACID 500 MG TAB PO SCH ×2 (08:51→16:37)
[2019-01-11] MEDS: MULTIVITAMIN TAB PO SCH (08:52)
[2019-01-11] MEDS: BUDESONIDE/FORMOTEROL FUMARATE 160/4.5 60 PUFFS/INHALER INH SCH ×2 (08:52→21:13)
[2019-01-11] MEDS: TAPENTADOL HCL ER 50 MG TABCR PO SCH ×2 (08:53→21:14)
[2019-01-11] MEDS: INSULIN ASPART 100 UNITS/ML 3 ML PEN SC SCH ×4 (08:55→21:39)
[2019-01-11] MEDS ORDERED: NON-FORMULARY MEDICATION (Magnesium 200 MG) PO SCH (09:00)
[2019-01-11] MEDS ORDERED: NON-FORMULARY MEDICATION (Multivitamin 1 CAP) PO SCH (09:00)
[2019-01-11] MEDS: APIXABAN 2.5 MG TAB PO SCH ×2 (10:58→21:14)
--- NOTE | 2019-01-11 11:36 | Pharmacy Report ---
Pharmacy Glycemic Short Note 2 - Date of Service January 11, 2019 - Glycemic Short BSG Results (Last 24 hours): 01/10/19 01/10/19 01/10/19 12:18 17:10 21:43 Glucose POC Glucose 109 H 127 H 156 H 01/11/19 01/11/19 05:23 08:25 Glucose 156 H POC Glucose 145 H OUTPATIENT ANTIDIABETIC REGIMEN: * no medications * A1c = 6.6 % 12/20/18 ASSESSMENT: * 73 year old female, s/p POD#1 TKA, type 2 diabetic controlled by diet/lifestyle at home, A1c 6.6%. * All BSGs within goal range with current orders. No changes needed at this time. * Goal is to maintain BSGs <200 mg/dl (ideally <150 mg/dl) to prevent post op complications PLAN FOR INPATIENT GLYCEMIC CONTROL: * Basal insulin * Not needed * Bolus insulin * NovoLog per scale ACHS or Q6hrs while NPO * Goal Range: Low 110 mg/dL - High 140 mg/dL * Correction Factor: 30 mg/dL/unit * Nutritional / Prandial insulin per carb ratio of 1 unit per 10 grams CHO consumed PLAN FOR DISCHARGE: * May consider starting metformin for diagnosis of diabetes per A1c > 6.5% * HbA1c of 6.5% or greater indicates "diagnosis of diabetes" --> ADA jsoh mmendation is to "Treat Diabetes" * Metformin, if not contraindicated and if tolerated, is the preferred initial pharmacological agent for type 2 diabetes. Metformin has a long-standing evidence base for efficacy and safety, is inexpensive, and may reduce risk of cardiovascular events. * Metformin XR 500mg PO daily with evening meal. Continue to titrate metformin dosing upwards as recommended. Dosage increases should be made in increments of 500 mg weekly, up to 2,000 mg/day PO, given in divided doses. Doses above 2000 mg/day may be better tolerated if divided and given 3 times per day with meals. Max: 2,550 mg/day PO, in divided doses * B12 supplementation may be necessary with mcc metformin use * Support Patient Self-Management * Healthy Lifestyle (diet, exercise, and smoking cessation) * Disease self-management (SMBG) * Prevention of complications (BP, Lipid goals, Immunizations) * Consider outpatient Diabetes Self-Management Education & Support
[2019-01-11] MEDS: SIMVASTATIN 40 MG TAB PO SCH (21:13)
[2019-01-11] MEDS: SENNA 8.6 MG TAB PO SCH (21:15)
[2019-01-12] MEDS: OXYCODONE HCL IR 5 MG TAB (IMMEDIATE RELEASE) PO PRN ×2 (01:59→12:06)
[2019-01-12] MEDS: ACETAMINOPHEN 500 MG TAB PO SCH (05:44)
[2019-01-12 06:07] LABS: Basophils # (auto) 0.03 K/uL (0-0.2); Basophils % (auto) 0.2 %; Eosinophils # (auto) 0.05 K/uL (0-0.5); Eosinophils % (auto) 0.4 %; Hematocrit (blood only) 25.7 % (37-47); Hemoglobin 8.2 g/dL (12.0-16.0); Immature Granulocytes # (auto) 0.07 K/uL (0.00-0.02); Immature Granulocytes % (auto) 0.5 %; Lymphocytes % (auto) 8.3 %; Mean Corpuscular Hemoglobin 29.7 pg (25-34); Mean Corpuscular Hgb Conc 31.9 g/dL (32-36); Mean Corpuscular Volume 93.1 fL (80-100); Mean Platelet Volume 9.6 fL (7.4-10.4); Monocytes # (auto) 1.55 K/uL (0.11-0.59); Monocytes % (auto) 11.7 %; Neutrophils # (auto) 10.41 K/uL (1.4-6.5); Neutrophils % (auto) 78.9 %; Platelet Count 180 K/uL (130-400); RDW Coefficient of Variation 13.1 % (11.5-14.5); RDW Standard Deviation 44.2 fL (36.4-46.3); Red Blood Count 2.76 M/uL (4.2-5.4); White Blood Count 13.21 K/uL (4.8-10.8)
--- NOTE | 2019-01-12 08:09 | Progress Note ---
DATE: 01/12/2019 SUBJECTIVE: A 73-year-old white female postop day 2 from a right knee replacement. She is doing better today. Pain seems to be better. No chest pain or shortness of breath. Not feeling dizzy or lightheaded. OBJECTIVE: VITAL SIGNS: Temperature 37.1. Vital signs stable. GENERAL: Physical examination shows a pleasant, middle-aged female. She is lying in bed, looks pretty comfortable. EXTREMITIES: Examination of the right leg reveals the dressing to be in place. Just a little bit of bloody drainage. She can dorsiflex and plantarflex her foot appropriately. She is neurologically intact. LABORATORY DATA: Hemoglobin 8.2. Hematocrit 25.7. ASSESSMENT: A 73-year-old white female postop day 2 from right knee replacement, doing pretty well. She is doing a little bit better pain bosch. She is anemic, but asymptomatic. PLAN: 1. DVT prophylaxis including thigh-high TEDs, SCDs, and Eliquis. We will put her back on her therapeutic dose upon discharge. 2. PT/OT. Weight bear as tolerated. Right total knee protocol. 3. Pain control, doing okay with current pain regimen. Pain seems to be a little bit better today. 4. Disposition: She is really wanting to go home. She feels she has got plenty of help at home and we will set her up with some home health.
[2019-01-12] MEDS: MULTIVITAMIN TAB PO SCH (08:54)
[2019-01-12] MEDS: DOCUSATE SODIUM 100 MG CAP PO SCH (08:54)
[2019-01-12] MEDS: APIXABAN 2.5 MG TAB PO SCH (08:55)
[2019-01-12] MEDS: ASPIRIN 81 MG ECTAB PO SCH (08:55)
[2019-01-12] MEDS: HYDROXYCHLOROQUINE SULFATE 200 MG TAB PO SCH (08:55)
[2019-01-12] MEDS: LISINOPRIL 20 MG TAB PO SCH (08:56)
[2019-01-12] MEDS: FERROUS GLUCONATE 324 MG TAB PO SCH (08:57)
[2019-01-12] MEDS: dilTIAZem HCL 240 MG CAPCR PO SCH (08:57)
[2019-01-12] MEDS: ASCORBIC ACID 500 MG TAB PO SCH (08:57)
[2019-01-12] MEDS: ESCITALOPRAM OXALATE 20 MG TAB PO SCH (08:57)
[2019-01-12] MEDS: BUDESONIDE/FORMOTEROL FUMARATE 160/4.5 60 PUFFS/INHALER INH SCH (08:58)
[2019-01-12] MEDS: IPRATROPIUM BROMIDE/ALBUTEROL respimat INH INH SCH (08:58)
[2019-01-12] MEDS: FUROSEMIDE 20 MG TAB PO SCH (08:58)
[2019-01-12] MEDS: CHOLECALCIFEROL 1,000 UNITS TAB PO SCH (08:58)
[2019-01-12] MEDS: TAPENTADOL HCL ER 50 MG TABCR PO SCH (09:02)
[2019-01-12] MEDS: INSULIN ASPART 100 UNITS/ML 3 ML PEN SC SCH (09:04)
--- NOTE | 2019-01-15 09:38 | Discharge Summary ---
ADMITTING PHYSICIAN AND SURGEON: Dr. Pedro Doan. ADMITTING DIAGNOSIS: Right knee degenerative joint disease. SURGERY PERFORMED: Right total knee arthroplasty. SECONDARY DIAGNOSES: Coronary artery disease, hypertension, elevated cholesterol, chronic obstructive pulmonary disease, diabetes, obesity, gastroesophageal reflux disease. CONSULTS: None obtained. HISTORY AND PHYSICAL EXAMINATION: Well documented in the patient's chart. HOSPITAL COURSE: The patient was admitted on 01/10/2019, underwent total knee arthroplasty, tolerated the procedure well. There were no complications. She was transferred to the PACU postoperatively and later to the orthopedic floor for further care. She was given Ancef for antibiotic prophylaxis, MIHAI stockings, SCDs and resumed her Eliquis for DVT prophylaxis. Hemoglobin, hematocrit and vital signs were monitored during her hospital stay and remained stable. She did not require any blood transfusions. By postoperative day 2, she was tolerating a diabetic diet. Pain was controlled with oral pain medicine. She was participating in physical therapy. Postop day 2, she was discharged home, set up with home health services. She was given printed discharge instructions as well as new prescriptions for extra-strength Tylenol, iron supplement and oxycodone. Continue home medicines. Continue physical therapy, weightbearing as tolerated, MIHAI stockings. Follow up approximately 2 weeks postop or sooner if there are any problems or concerns.
== END 2019-01-12 12:46 | disposition home health service (06) | DRG 470 ==
LOC: ASU 05:53 → 3E 11:02

== ENCOUNTER 2022-12-12 15:30 | Observation (INO) ==
[2022-12-12 16:30] LABS: Basophils # (auto) 0.08 K/uL (0-0.2); Basophils % (auto) 0.8 %; Eosinophils # (auto) 0.21 K/uL (0-0.50); Eosinophils % (auto) 2.1 %; Hematocrit (blood only) 34.2 % (37.0-47.0); Hemoglobin 11.4 g/dl (12.0-16.0); Immature Granulocytes # (auto) 0.05 K/uL (0.01-0.20); Immature Granulocytes % (auto) 0.5 %; Lymphocytes # (auto) 1.06 K/uL (1.2-3.4); Lymphocytes % (auto) 10.7 %; Mean Corpuscular Hgb Conc 33.3 g/dL (32.0-36.0); Mean Platelet Volume 9.6 fL (9.4-12.4); Monocytes # (auto) 0.75 K/uL (0.11-0.59); Monocytes % (auto) 7.6 %; Neutrophils # (auto) 7.74 K/uL (1.40-6.50); Neutrophils % (auto) 78.3 %; Platelet Count 231 K/uL (130-400); RDW Coefficient of Variation 11.9 % (11.5-14.5); RDW Standard Deviation 38.7 fL (36.4-46.3); White Blood Count 9.89 K/ul (4.8-10.8)
[2022-12-12 16:50] LABS: Alanine Aminotransferase 11 U/L (7-52); Albumin Globulin Ratio 1.5 (0.9-2); Albumin Level 4.4 gm/dl (3.4-5.0); Alkaline Phosphatase 62 U/L (34-104); Anion Gap 7 (3-11); Aspartate Aminotransferase 16 U/L (13-39); BUN Creatinine Ratio 16.5 (10-20); Bilirubin,Total 0.3 mg/dl (0.2-1.0); Blood Urea Nitrogen 41 mg/dl (6-23); Calcium 9.9 mg/dl (8.6-10.3); Carbon Dioxide 29 mmol/L (21-32); Chloride 104 mmol/L (98-107); Est GFR (Non-African American) 18.1 ml/min; Globulin 2.9 gm/dl (2.5-4.0); Glucose 113 mg/dl (70-99(Fasting)); Potassium 5.1 mmol/L (3.5-5.1); Sodium 140 mmol/L (136-145); Total Protein 7.3 gm/dl (6.0-8.3)
[2022-12-12 16:57] LABS: Partial Thromboplastin Time 29.4 Seconds (21.0-31.0); Prothrombin Time 11.4 Seconds (9.0-12.0)
[2022-12-12] MEDS ORDERED: MoRPHine SULFATE 2 MG/ML CARP IV STA (18:08)
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
[2022-12-12] MEDS ORDERED: CEFEPIME 2,000 MG/20 ML VIAL IV STA (18:23)
--- NOTE | 2022-12-12 19:00 | XRay Report ---
LEFT FOOT 3 VIEWS CLINICAL HISTORY: Left foot pain and erythema. FINDINGS: 3 views of the left foot are obtained. No prior studies are available for comparison at the time of dictation. The skeletal structures are osteopenic. No fracture is seen. There is no bony ero buddy or periostitis. Moderate osteoarthritic change is seen at the first metatarsophalangeal joint. M ilder osteoarthritic change is seen throughout the remainder of the foot. No erosive disease is seen. There are large dorsal and plantar heel spurs. Degenerative spurring is noted along the dorsal aspec t of the tarsal bones. Mild soft tissue edema seen throughout the foot. IMPRESSION: 1. Soft tissue swelling with no acute bony abnormality identified. 2. Osteopenia with degenerative change and large heel spurs as above. Electronically signed by: Nam Ruaon M.D. 12/12/2022 6:59 PM
[2022-12-12 19:57] LABS: Creatine Kinase 90 U/L (26-192)
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
[2022-12-12 20:54] LABS: Uric Acid 9.6 mg/dl (2.6-7.2)
[2022-12-12] MEDS ORDERED: NON-FORMULARY MEDICATION (Turmeric Root Extract 500 mg Capsule) PO SCH (22:25)
[2022-12-12] MEDS ORDERED: DEXTROSE 50% 50 ML SYRINGE IV PRN (22:25)
[2022-12-12] MEDS ORDERED: MECLIZINE 12.5 MG TAB PO PRN (22:25)
[2022-12-12] MEDS ORDERED: GLUCOSE 40% GEL 15 GM TUBE PO PRN (22:25)
[2022-12-12] MEDS ORDERED: ONDANSETRON INJ 2 MG/ML 2 ML VIAL IV PRN (22:25)
[2022-12-12] MEDS ORDERED: GLUCOSE 10 TAB/TUBE PO PRN (22:25)
[2022-12-12] MEDS ORDERED: IPRATROPIUM BROMIDE/ALBUTEROL respimat INH INH PRN (22:25)
[2022-12-12] MEDS ORDERED: ALBUT/IPRATROP 3MG/0.5MG NEB 3 ML VIAL INH PRN (22:25)
[2022-12-12] MEDS ORDERED: CARBOHYDRATES FOR HYPOGLYCEMIA PO PRN (22:25)
[2022-12-12] MEDS ORDERED: GLUCAGON FOR INJ 1 MG VIAL SQ PRN (22:25)
[2022-12-12] MEDS: INSULIN ASPART PER UNIT CHARGE SC SCH (22:53)
[2022-12-12] MEDS: APIXABAN 5 MG TABLET PO SCH (23:05)
[2022-12-12] MEDS: ROSUVASTATIN CALCIUM 5 MG TAB PO SCH (23:05)
[2022-12-12] MEDS ORDERED: IPRATROPIUM BROMIDE HFA INHALER INH PRN (23:07)
[2022-12-12] MEDS ORDERED: ALBUTEROL HFA 8 GM INHALER INH PRN (23:08)
[2022-12-12] MEDS ORDERED: DAPTOmycin 325 MG in SYRINGE 0 ML IV SCH (23:30)
[2022-12-13] MEDS: HYDROCORTISONE 1% OINT 30 GM TUBE EXT PRN ×2 (03:25→08:36)
[2022-12-13] MEDS: ACETAMINOPHEN 325 MG TAB PO PRN ×3 (03:31→19:36)
[2022-12-13] MEDS ORDERED: SODIUM CHLORIDE 0.9% 1000ML 1,000 ML IV SCH (04:30)
[2022-12-13 08:31] LABS: Basophils # (auto) 0.08 K/uL (0-0.2); Basophils % (auto) 0.8 %; Eosinophils # (auto) 0.31 K/uL (0-0.50); Eosinophils % (auto) 3.3 %; Hematocrit (blood only) 29.5 % (37.0-47.0); Hemoglobin 9.6 g/dl (12.0-16.0); Immature Granulocytes # (auto) 0.04 K/uL (0.01-0.20); Immature Granulocytes % (auto) 0.4 %; Lymphocytes # (auto) 1.21 K/uL (1.2-3.4); Lymphocytes % (auto) 12.8 %; Mean Corpuscular Hemoglobin 29.7 pg (25.0-34.0); Mean Corpuscular Hgb Conc 32.5 g/dL (32.0-36.0); Mean Corpuscular Volume 91.3 fL (80.0-100.0); Mean Platelet Volume 9.5 fL (9.4-12.4); Monocytes # (auto) 1.02 K/uL (0.11-0.59); Monocytes % (auto) 10.8 %; Neutrophils # (auto) 6.78 K/uL (1.40-6.50); Neutrophils % (auto) 71.9 %; Platelet Count 179 K/uL (130-400); RDW Coefficient of Variation 11.9 % (11.5-14.5); RDW Standard Deviation 39.5 fL (36.4-46.3); Red Blood Count 3.23 M/uL (4.20-5.40); White Blood Count 9.44 K/ul (4.8-10.8)
[2022-12-13] MEDS: CEFEPIME 1,000 MG in SYRINGE 0 ML IV SCH ×2 (08:40→20:05)
[2022-12-13] MEDS ORDERED: NON-FORMULARY MEDICATION (Coq10 (Ubiquinol) 200 mg Capsule) PO SCH (09:00)
[2022-12-13 09:05] LABS: Albumin Globulin Ratio 1.3 (0.9-2); Albumin Level 3.6 gm/dl (3.4-5.0); BUN Creatinine Ratio 23.2 (10-20); Bilirubin,Total 0.3 mg/dl (0.2-1.0); Calcium 8.9 mg/dl (8.6-10.3); Creatinine Clr Calc Pharmacy 32.5 ml/min; Est GFR (African American) 29.2 ml/min; Est GFR (Non-African American) 25.2 ml/min; Globulin 2.7 gm/dl (2.5-4.0); Magnesium 2.4 mg/dl (1.7-2.4); Potassium 4.6 mmol/L (3.5-5.1); Total Protein 6.3 gm/dl (6.0-8.3)
[2022-12-13] MEDS: APIXABAN 5 MG TABLET PO SCH ×2 (09:07→20:05)
[2022-12-13] MEDS: COLCHICINE 0.6 MG TAB PO SCH ×2 (09:07→20:04)
[2022-12-13] MEDS: UMECLIDINIUM/VILANTEROL 62.5/25MCG 7 PUFFS/INHALER INH SCH (09:08)
[2022-12-13] MEDS: FLUTICASONE FUROATE 200MCG 14 PUFFS/INHALER INH SCH (09:08)
[2022-12-13] MEDS: CHOLECALCIFEROL 1,000 UNITS 25 MCG TAB PO SCH (09:09)
[2022-12-13] MEDS: ASPIRIN 81 MG ECTAB PO SCH (09:09)
[2022-12-13] MEDS: dilTIAZem HCL 120 MG CAPCR PO SCH (09:09)
[2022-12-13] MEDS: HYDROXYCHLOROQUINE SULFATE 200 MG TAB PO SCH (09:09)
[2022-12-13] MEDS: MULTIVITAMIN TAB PO SCH (09:09)
[2022-12-13] MEDS: TOCOPHERYL, DL-ALPHA 100 UNITS 67 MG CAP PO SCH (09:10)
[2022-12-13] MEDS: INSULIN ASPART PER UNIT CHARGE SC SCH ×4 (09:20→20:48)
[2022-12-13 09:35] LABS: Estimated Average Glucose 123 mg/dl; Hemoglobin A1C 5.9 % (4.5-5.6)
--- NOTE | 2022-12-13 10:18 | Hospitalist Progress Note ---
Date of Service December 13, 2022 Assessment & Plan (1) Gout attack: Plan: Gout attack/hyperuricemia/superimposed cellulitis of left fourth and fifth toes- Patient was placed on cefepime 2 g IV from the ED. Daptomycin IV was added clinically appears to be some cellulitic component we will reevaluate in 24 hours x-rays of the foot did not reveal any signs of osteomyelitis hyperuricemiaUric acid level was markedly elevated at 9.6, no previous history of gout Started colchicine 0.6 mg p.o. twice daily Allopurinol can be started once the acute gout attack is under control at the discretion of her primary care provider (2) COPD (chronic obstructive pulmonary disease): Plan: chronic and stable, COPD-Continue : Shelli Ruiz with history of tobacco abuse with resultant pulmonary hypertension (3) Diabetes mellitus, type 2: Plan: typically on Sitagliptin history of chronic kidney disease stage III now with acute kidney injury on admission improving Hold furosemide, lisinopril and Jardiance -normal saline x1 L (4) Atrial fibrillation: Plan: chronic Atrial fibrillation/hypertension patient does not have heart failure last echocardiogram report shows preserved ejection fraction Continue apixaban, aspirin, diltiazem Holding lisinopril due to SYDNEY Holding Sitagliptin history of endovascular thoracic aortic aneurysm repair and following abdominal aortic aneurysm secondary risk prevention with statin agent continue (5) Rheumatoid arthritis: Plan: chronic and stable continue hydroxychloroquine Admission and Anticipated Discharge Date Admission Date: December 12, 2022 Subjective patient has improved pain but still significantly painful. Discussed the fact that her uric acid level is elevated no history of gout. Appears to have some cellulitic component to my clinical evaluation there is a small open area at the base of her fifth toe on the plantar surface Physical Exam Physical Exam: evaluation of the foot shows discolored skin at the base of her fourth and fifth toe extending to the webspace between the fourth and fifth toe with a small open area at the base of the fifth toe near the plantar surface which looks to be cellulitic with a portal of entry Results & Data Results & Data Vital Signs (Past 12 Hours) Vital Signs Temp Pulse Resp BP Pulse Ox O2 Del Method O2 Flow Rate 12/13/22 07:37 98.4 F 61 16 122/73 96 Nasal Cannula 2 12/12/22 22:40 Nasal Cannula 2 12/12/22 22:40 98.2 F 70 18 156/78 H 94 Nasal Cannula 2 Laboratory Results reviewed CBC reviewed chemistry PG Care Time/CCT Total # of Minutes Spent Total Time Spent with Patient: Total time spent is greater than 50% in coordination of care (as documented) at patient's floor/unit and/or counseling patient: Coding Level of Care Code 05004 SUB INP/OBS CARE 2/35MIN Diagnoses Gout attack M10.9 COPD (chronic obstructive pulmonary disease) J44.9 Diabetes mellitus, type 2 E11.9 Atrial fibrillation I48.91 Rheumatoid arthritis M06.9
[2022-12-13] MEDS: ROSUVASTATIN CALCIUM 5 MG TAB PO SCH (20:04)
[2022-12-13] MEDS ORDERED: DAPTOmycin 325 MG in SYRINGE 0 ML IV SCH (23:00)
[2022-12-14 07:41] LABS: Basophils # (auto) 0.06 K/uL (0-0.2); Eosinophils # (auto) 0.32 K/uL (0-0.50); Eosinophils % (auto) 5.4 %; Hemoglobin 10.2 g/dl (12.0-16.0); Immature Granulocytes # (auto) 0.04 K/uL (0.01-0.20); Immature Granulocytes % (auto) 0.7 %; Lymphocytes # (auto) 1.24 K/uL (1.2-3.4); Mean Corpuscular Hemoglobin 29.7 pg (25.0-34.0); Mean Corpuscular Hgb Conc 31.9 g/dL (32.0-36.0); Mean Corpuscular Volume 93.3 fL (80.0-100.0); Mean Platelet Volume 9.5 fL (9.4-12.4); Monocytes # (auto) 0.77 K/uL (0.11-0.59); Monocytes % (auto) 13.1 %; Neutrophils # (auto) 3.47 K/uL (1.40-6.50); Neutrophils % (auto) 58.8 %; Platelet Count 187 K/uL (130-400); RDW Coefficient of Variation 11.9 % (11.5-14.5); RDW Standard Deviation 40.8 fL (36.4-46.3); Red Blood Count 3.43 M/uL (4.20-5.40)
[2022-12-14 08:02] LABS: Albumin Globulin Ratio 1.5 (0.9-2); Albumin Level 3.8 gm/dl (3.4-5.0); BUN Creatinine Ratio 25.3 (10-20); Bilirubin,Total 0.3 mg/dl (0.2-1.0); Calcium 9.1 mg/dl (8.6-10.3); Creatinine Clr Calc Pharmacy 40.1 ml/min; Est GFR (African American) 37.6 ml/min; Est GFR (Non-African American) 32.4 ml/min; Globulin 2.6 gm/dl (2.5-4.0); Magnesium 2.4 mg/dl (1.7-2.4); Total Protein 6.4 gm/dl (6.0-8.3)
[2022-12-14] MEDS: MULTIVITAMIN TAB PO SCH (08:48)
[2022-12-14] MEDS: APIXABAN 5 MG TABLET PO SCH (08:48)
[2022-12-14] MEDS: COLCHICINE 0.6 MG TAB PO SCH (08:48)
[2022-12-14] MEDS: HYDROXYCHLOROQUINE SULFATE 200 MG TAB PO SCH (08:48)
[2022-12-14] MEDS: dilTIAZem HCL 120 MG CAPCR PO SCH (08:48)
[2022-12-14] MEDS: CHOLECALCIFEROL 1,000 UNITS 25 MCG TAB PO SCH (08:48)
[2022-12-14] MEDS: ASPIRIN 81 MG ECTAB PO SCH (08:48)
[2022-12-14] MEDS: UMECLIDINIUM/VILANTEROL 62.5/25MCG 7 PUFFS/INHALER INH SCH (08:49)
[2022-12-14] MEDS: FLUTICASONE FUROATE 200MCG 14 PUFFS/INHALER INH SCH (08:49)
[2022-12-14] MEDS: TOCOPHERYL, DL-ALPHA 100 UNITS 67 MG CAP PO SCH (08:49)
[2022-12-14] MEDS: INSULIN ASPART PER UNIT CHARGE SC SCH ×2 (09:01→12:41)
[2022-12-14] MEDS: CEFEPIME 1,000 MG in SYRINGE 0 ML IV SCH (09:02)
--- NOTE | 2022-12-14 19:14 | Discharge Summary ---
Date of Service December 14, 2022 Admission HPI Per Admitting Provider The patient is a 77-year-old female with a past medical history including hyperlipidemia, COPD, GERD, tobacco abuse, rheumatoid arthritis, pulmonary hypertension, CAD, CKD stage III, diabetes mellitus type 2, atrial fibrillation, hypertension and AAA. She usually walks with a walker, and sometimes she starts to lose her balance when she walks and her has to guide her. She reports the acute development of painful, swollen and red left fourth and fifth toes that began without any recent trauma. She has had no breaks in her skin. She has had no previous occurrence of these types of symptoms. She reports the toes are exquisitely tender to light touch. She denies any recent changes to diet. Principal Diagnosis diabetic foot infection gout Discharge Exam receding erythema, less pain still open area at base of 5th toe Discharge Data Allergies Allergy/AdvReac Type Severity Reaction Status Date / Time Iodinated Contrast Media Allergy Intermediate MENTAL Verified 12/12/22 18:56 STATUS CHANGE - ? DELLUSIONS nickel Allergy Intermediate RASH Verified 12/12/22 18:56 Penicillins Allergy Intermediate RASH Verified 12/12/22 18:56 Sulfa (Sulfonamide Allergy Intermediate "SULFA Verified 12/12/22 18:56 Antibiotics) DRUGS = RASH, HIVES, SWELLING" adhesive Allergy Mild RED Verified 12/12/22 18:56 BLISTERS Consultations 12/12/22 20:25 ED Decision to Admit Stat Hospital Course (1) Gout attack: Gout/hyperuricemia/superimposed cellulitis of left fourth and fifth toes- diabetic foot infection, possible sinus tract, open area x-rays of the foot did not reveal any signs of osteomyelitis will have home on Clinda and Levaquin, will have podiatry follow up, will not continue colchicine or start allopurinol as this is first knowledge that she had this issue hyperuricemiaUric acid level was markedly elevated at 9.6, no previous history of gout Started colchicine 0.6 mg p.o. twice daily (2) COPD (chronic obstructive pulmonary disease): chronic and stable, COPD-Continue : Trelegy Ellipta, Combivent with history of tobacco abuse with resultant pulmonary hypertension (3) Diabetes mellitus, type 2: typically on Sitagliptin history of chronic kidney disease stage III now with acute kidney injury on admission improving resume home furosemide, lisinopril and Jardiance (4) Atrial fibrillation: chronic Atrial fibrillation/hypertension patient does not have heart failure last echocardiogram report shows preserved ejection fraction Continue apixaban, aspirin, diltiazem lisinopril Sitagliptin history of endovascular thoracic aortic aneurysm repair and following abdominal aortic aneurysm secondary risk prevention with statin agent continue (5) Rheumatoid arthritis: chronic and stable continue hydroxychloroquine Total Time Total Time Spent Total Time Spent (In Minutes): discharge process required greater than 30 minutes to complete Discharge Plan Discharge Items Patient Disposition: Home - Self-Care Reason For Visit: LEFT TOE CELLULITIS, SYDNEY ON CKD Discharge Diagnosis: diabetic foot infection possible gout Activity: Per Instructions section Non-emergency contact: Primary Care Provider and Surgeon Call non-emergency contact if: your symptoms worsen Follow-up/Referrals: Heidi Gil CRNP [Primary Care Provider] - 12/21/22 10:30 am Aimee Ledesma DPM [Surgeon] - Diet: Carb Consistent or DM2 Addtl Attending Provider Instructions: please keep foot clean and dry due to your penicillin allergy we ill need to Rx two mediations if you have a fever or spreading redness return, follow up with your primary care and podiatry you may use tylenol for pain contro Pending Studies at Discharge: No Stand-Alone Forms: My [facility], Smoking Cessation Medications and DC Order Prescriptions: New clindamycin HCl 300 mg capsule 300 mg PO TID 10 Days Qty: 30 0RF levofloxacin 750 mg tablet 750 mg PO DAILY 10 Days Qty: 10 0RF Continued (DME) Portable Oxygen Misc See Rx Instructions .Route Qty: 1 0RF Rx Instructions: POC-test for conserving device at 4lpm Eliquis 5 mg tablet 5 mg PO BID Qty: 180 3RF ipratropium-albuterol 0.5 mg-3 mg(2.5 mg base)/3 mL solution for nebulization 3 ml inhalation Q8H PRN (Reason: shortness of breath or wheezing) Qty: 180 3RF Rx Instructions: PER PT "USE QAM EVERYDAY". calcitriol 0.25 mcg capsule 0.25 mcg PO 2XWK Qty: 30 5RF Rx Instructions: TAKE THIS MED EVERY SUNDAY AND SUNDAY. lisinopril 10 mg tablet 10 mg PO QAM Qty: 90 3RF diltiazem HCl 120 mg capsule,extended release 24 hr 120 mg PO DAILY Qty: 30 3RF Trelegy Ellipta 200-62.5-25 mcg blister with device 1 inh inhalation Q24H Qty: 60 5RF (DME) Oxygen Home Liters Per Minute See Rx Instructions .Route Qty: 1 0RF Rx Instructions: Humidifaction for Oxygen Januvia 25 mg tablet 25 mg PO QAM Qty: 30 5RF (DME) blood-glucose meter [OneTouch Verio Flex meter] [facility] [place] See Rx Instructions .ROUTE .MEDSUPPLY Qty: 1 0RF Rx Instructions: Check blood sugar daily and as needed (DME) OneTouch Verio test strips Strip See Rx Instructions .ROUTE .MEDSUPPLY Qty: 10 0RF Rx Instructions: Check blood sugar once a day and as needed (DME) lancets [OneTouch Delica Plus Lancet] 33 [place] [facility] [place] Rx Instructions .ROUTE .MEDSUPPLY Qty: 100 0RF Rx Instructions: Check blood sugar once daily and as needed meclizine 12.5 mg tablet 12.5 mg PO BID PRN (Reason: dizziness) 2 Days Qty: 6 0RF Rx Instructions: Take 1 tablet, if no improvement after 8 hours can take 2 tablets. No more than 3/day vitamin E 200 unit capsule 200 unit PO DAILY furosemide [Lasix] 20 mg tablet 20 mg PO DAILY Qty: 90 5RF hydroxychloroquine [Plaquenil] 200 mg Tablet 400 mg PO QAM multivitamin [Multiple Vitamins] Tablet 2 tab PO DAILY turmeric root extract 500 mg Capsule 500 mg PO BID cholecalciferol (vitamin D3) [Vitamin D3] 50 mcg (2,000 unit) Capsule 50 mcg PO DAILY coQ10 (ubiquinol) 200 mg Capsule 200 mg PO DAILY rosuvastatin 5 mg tablet 5 mg PO HS Combivent Respimat 20-100 mcg/actuation mist 1 puff INHALATION QID PRN (Reason: Shortness Of Breath Or Wheezing) aspirin 81 mg Tablet,Delayed Release (Dr/Ec) 81 mg PO DAILY Discharge Orders: Discharge Order (Routine); Ordered 12/14/22 Ordered By: Demetrio Sanchez/Other Patient Handouts: Managing Type 2 Diabetes Admission Data Admit Date/Time: 12/12/22 20:13 Attending Provider: Demetrio Almaraz Admit Provider: Ryan Soto Primary Care Provider: Heidi Gil Other Providers: Ryan Soto Other Interventions: Discharge Summary Assessment (RN) Last Done: 12/14/22 15:34 Coding Level of Care Code 95021 INP/OBS DISCH >30 MIN Diagnoses Gout attack M10.9 COPD (chronic obstructive pulmonary disease) J44.9 Diabetes mellitus, type 2 E11.9 Atrial fibrillation I48.91 Rheumatoid arthritis M06.9
[2022-12-15] MEDS ORDERED: CALCITRIOL 0.25 MCG CAPSULE PO SCH (09:00)
== END 2022-12-14 16:31 | disposition home or self-care (01) ==
LOC: ED 15:30 → 3N 20:13 → INTOOBSV 20:13 → SUATTDRO 20:13 → 3N 23:40